=== PATIENT | male | born 1990 | race American Indian/Alaskan Native ===

== ENCOUNTER 2017-03-15 05:44 | Emergency (ER) | payer BC, OTHER ==
[2017-03-15] MEDS ORDERED: Diphtheria,Pertussis(Acell),Tetanus Vaccine 0.5 ML Syringe IM ONE (06:17)
--- NOTE | 2017-03-15 06:26 | EDM.PDOC ---
ED HPI GENERAL MEDICAL PROBLEM - General Chief Complaint: Bite:Animal, Insect Stated Complaint: DOG BITE Time Seen by Provider: 03/15/17 05:55 Source of Information: Reports: Patient - History of Present Illness INITIAL COMMENTS - FREE TEXT/NARRATIVE: History of present illness: []Patient was bitten by his own dog this morning to his right hand. He denies any other injuries he is able to move his hand and has normal sensation. He is unaware of when he had his last tetanus shot. Review of systems: As per history of present illness and below otherwise all systems reviewed and negative. Past medical history: As per history of present illness and as reviewed below otherwise noncontributory. Surgical history: As per history of present illness and as reviewed below otherwise noncontributory. Social history: No reported history of drug or alcohol abuse. Family history: As per history of present illness and as reviewed below otherwise noncontributory. Physical exam: General: Well developed, well nourished in NAD HEENT: Atraumatic, normocephalic, pupils reactive, negative for conjunctival pallor or scleral icterus, mucous membranes moist, throat clear, neck supple, nontender, trachea midline. Lungs: Clear to auscultation, breath sounds equal bilaterally, chest nontender. Heart: S1S2, regular, negative for clicks, rubs, or JVD. Abdomen: Soft, nondistended, nontender. Negative for masses or hepatosplenomegaly. Negative for costovertebral tenderness. Pelvis: Stable nontender. Genitourinary: Deferred. Rectal: Deferred. Extremities: Superficial abrasion to the right thumb at the base of the nail plate full range of motion capillary refill brisk sensation intact, negative for cords or calf pain. Neurovascular unremarkable. Neuro: Awake, alert, oriented. Cranial nerves II through XII unremarkable. Cerebellum unremarkable. Motor and sensory unremarkable throughout. Exam nonfocal. Diagnostics: []X-ray showing no fracture Therapeutics: []Tetanus was updated wound was cleaned Impression: []Dog bite right thumb Plan: []Augmentin twice a day for 7 days Motrin for pain warm soaks 3 times a day for 20 minutes follow-up with PMD or return here if symptoms worsen or change Definitive disposition and diagnosis as appropriate pending reevaluation and review of above. right thumb Pain Score (Numeric/FACES): 7 - Related Data Allergies Allergy/AdvReac Type Severity Reaction Status Date / Time seasonal allergies Allergy Sneezing Uncoded 03/15/17 06:06 Home Meds: Home Meds Amoxicillin/Potassium Clav [Augmentin 875-125 Tablet] 1 each PO BID #14 tablet 03/15/17 [Rx] LORazepam 1 mg PO ASDIRECTED 03/15/17 [History] Past Medical History HEENT History: Reports: None Cardiovascular History: Reports: None Respiratory History: Reports: None Gastrointestinal History: Reports: None Genitourinary History: Reports: None Musculoskeletal History: Reports: None Neurological History: Reports: None Psychiatric History: Reports: Anxiety, Depression Endocrine/Metabolic History: Reports: None Hematologic History: Reports: None Immunologic History: Reports: None Oncologic (Cancer) History: Reports: None Dermatologic History: Reports: None - Infectious Disease History Infectious Disease History: Reports: None - Past Surgical History Head Surgeries/Procedures: Reports: None HEENT Surgical History: Reports: Naso-Sinus Surgery Musculoskeletal Surgical History: Reports: Other (See Below) Other Musculoskeletal Surgeries/Procedures:: surgery to right finger Social & Family History - Family History Family Medical History: Noncontributory - Tobacco Use Smoking Status *Q: Never Smoker - Caffeine Use Caffeine Use: Reports: Coffee - Recreational Drug Use Recreational Drug Use: No ED ROS GENERAL - Review of Systems Review Of Systems: See Below (See history of present illness) ED EXAM, ANIMAL BITE - Physical Exam Exam: See Below (See history of present illness) Course - Vital Signs Last Recorded V/S: Last Vital Signs Temp 36.1 C 03/15/17 05:57 Pulse 64 03/15/17 05:57 Resp 16 03/15/17 05:57 BP 142/80 H 03/15/17 05:57 Pulse Ox 98 03/15/17 05:57 - Orders/Labs/Meds Orders: Active Orders 24 hr Category Date Time Status Vaccines to be Administered [RC] PER UNIT ROUTINE Care 03/15/17 06:17 Active Hand 2V Rt [CR] Stat Exams 03/15/17 06:17 Taken Meds: Medications Discontinued Medications Generic Name Dose Route Start Last Admin Trade Name Freq PRN Reason Stop Dose Admin Diphtheria/Tetanus/Acell Pertussis 0.5 ml 03/15/17 06:17 03/15/17 06:53 Adacel IM 03/15/17 06:18 0.5 ml .ONCE ONE Administration Departure - Departure Time of Disposition: 07:22 Disposition: Home, Self-Care 01 Condition: Good Clinical Impression: Dog bite of right hand Qualifiers: Encounter type: initial encounter Qualified Code(s): S61.451A - Open bite of right hand, initial encounter; W54.0XXA - Bitten by dog, initial encounter - Discharge Information Prescriptions: Amoxicillin/Potassium Clav [Augmentin 875-125 Tablet] 1 each PO BID #14 tablet Forms: ED Department Discharge Additional Instructions: The following information is given to patients seen in the emergency department who are being discharged to home. This information is to outline your options for follow-up care. We provide all patients seen in our emergency department with a follow-up referral. The need for follow-up, as well as the timing and circumstances, are variable depending upon the specifics of your emergency department visit. If you don't have a primary care physician on staff, we will provide you with a referral. We always advise you to contact your personal physician following an emergency department visit to inform them of the circumstance of the visit and for follow-up with them and/or the need for any referrals to a consulting specialist. The emergency department will also refer you to a specialist when appropriate. This referral assures that you have the opportunity for follow-up care with a specialist. All of these measure are taken in an effort to provide you with optimal care, which includes your follow-up. Under all circumstances we always encourage you to contact your private physician who remains a resource for coordinating your care. When calling for follow-up care, please make the office aware that this follow-up is from your recent emergency room visit. If for any reason you are refused follow-up, please contact the [facility] Emergency Department at and asked to speak to the emergency department charge nurse. Augmentin twice a day for 7 days Follow-up with PMD return here if symptoms worsen or change, warm soaks 3 times a day for 10 minutes next couple days. [facility] [address] [place] [id number] - My Orders Last 24 Hours: My Active Orders 03/15/17 06:17 Vaccines to be Administered [RC] PER UNIT ROUTINE Hand 2V Rt [CR] Stat - Assessment/Plan Last 24 Hours: My Active Orders 03/15/17 06:17 Vaccines to be Administered [RC] PER UNIT ROUTINE Hand 2V Rt [CR] Stat
[2017-03-15 07:38] VITALS: BP 134/78
--- NOTE | 2017-03-15 13:18 | CR ---
EXAM DATE: 03/15/17 PATIENT'S AGE: 26 Patient: THERESA LIU Facility: [place], [place] Site . Site : 1990 Study: XRay Extremity Right HAND [id number]/18/2017 7:10:35 AM Ordering Physician: Doctor Lopez Final Report: INDICATION: Dog bite to the right 1st digit. Comparison: Radiographic examination of the right hand February 19, 2012. Technique: Two-view study right hand. Findings: No evidence of fracture or dislocation involving the right 1st finger. Deformity terminal phalanx right middle finger stable in appearance. Bony protrusion along the lateral aspect distal end proximal phalanx right 4th finger ; further assessment with correlating with the clinical examination is suggested. Impression: 1. Negative radiographic examination of the right 1st finger. 2. Deformity tuft middle phalanx stable in appearance. 3. Bony protrusion lateral aspect distal end proximal phalanx right 4th finger. Dictated by Jennifer John MD @ Mar 15 2017 7:12AM (Electronic Signature) Report Signed by Proxy. RA
== END 2017-03-15 07:39 | disposition home or self-care (01) ==
LOC: MW.ED 05:44
DX: S61.051A Open bite of right thumb without damage to nail, initial encounter (principal); S60.311A Abrasion of right thumb, initial encounter; F41.9 Anxiety disorder, unspecified; F32.9 Major depressive disorder, single episode, unspecified; W54.0XXA Bitten by dog, initial encounter; Z23 Encounter for immunization
CPT/HCPCS: 73120-26-RT; 73120-RT; 90471; 90715; 99283; 99283-25

== ENCOUNTER 2017-06-07 21:59 | Emergency (ER) | payer BC, OTHER ==
[2017-06-07] MEDS ORDERED: Bacitracin Oint 1 GM U/D Packet TOP ONE (22:18)
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
[2017-06-07] MEDS ORDERED: Ibuprofen 800 MG Tab PO ONE (22:56)
[2017-06-08 00:48] VITALS: BP 140/89
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
== END 2017-06-07 23:03 | disposition home or self-care (01) ==
LOC: MW.ED 21:59
DX: S80.02XA Contusion of left knee, initial encounter (principal); S50.12XA Contusion of left forearm, initial encounter; S80.212A Abrasion, left knee, initial encounter; V03.90XA Pedestrian on foot injured in collision with car, pick-up truck or van, unspecified whether traffic or nontraffic accident, initial encounter; Y92.410 Unspecified street and highway as the place of occurrence of the external cause
CPT/HCPCS: 73562; 99284; A9270; 99282

== ENCOUNTER 2019-04-11 18:15 | Emergency (ER) | payer BC, OTHER ==
[2019-04-11 18:52] VITALS: BP 124/68
--- NOTE | 2019-04-11 18:56 | EDM.PDOC ---
ED HPI GENERAL MEDICAL PROBLEM - General Chief Complaint: Behavioral/Psych Stated Complaint: PT HAS ANXIETY Time Seen by Provider: 04/11/19 18:38 Source of Information: Reports: Patient History Limitations: Reports: No Limitations - History of Present Illness INITIAL COMMENTS - FREE TEXT/NARRATIVE: HISTORY AND PHYSICAL: History of present illness: Patient is a 28-year-old male who presents to the ED today with concern of having an anxiety attack today. Patient states he has a history of anxiety and depression in his mother about 1 month ago which has worsened his symptoms over the past month. Patient states he follows along with Dr. Bill in the clinic, and at the last visit adjusted his medications. Patient states he feels as if these medications aren't working and anxiety has been worse the past week. Patient states today he feels like his heart is racing like he can't take a big deep breath in. Patient states he does not have any rescue medication for this at home. Patient denies any homicidal or suicidal plan, intent, or actions. Patient states he has been following with counseling along with frequent visits with Dr. Bill for his symptoms. Patient denies any other symptoms or concerns at this time. Patient denies fever, chills, chest pain, or cough. Denies headache, neck stiff ness, change in vision, syncope, or near syncope. Denies nausea, vomiting, abdominal pain, diarrhea, constipation, or dysuria. Has not noted any blood in urine or stool. Patient has been eating and drinking appropriately. Review of systems: As per history of present illness and below otherwise all systems reviewed and negative. Past medical history: As per history of present illness and as reviewed below otherwise noncontributory. Surgical history: As per history of present illness and as reviewed below otherwise noncontributory. Social history: See social history for further information Family history: As per history of present illness and as reviewed below otherwise noncontributory. Physical exam: General: Patient is alert, oriented, and in no acute distress. Patient sitting comfortably on exam table but anxious appearing playing with the bottom of his shirt. HEENT: Atraumatic, normocephalic, pupils equal and reactive bilaterally, negative for conjunctival pallor or scleral icterus, mucous membranes moist, TMs normal bilaterally, throat clear, neck supple, nontender, trachea midline. No drooling or trismus noted. No meningeal signs. No hot potato voice noted. Lungs: Clear to auscultation, breath sounds equal bilaterally, chest nontender. Heart: S1S2, regular rate and rhythm without overt murmur Abdomen: Soft, nondistended, nontender. Negative for masses or hepatosplenomegaly. Negative for costovertebral tenderness. Pelvis: Stable nontender. Genitourinary: Deferred. Rectal: Deferred. Skin: Intact, warm, dry. No lesions or rashes noted. Extremities: Atraumatic, negative for cords or calf pain. Neurovascular unremarkable. Neuro: Awake, alert, oriented. Cranial nerves II through XII unremarkable. Cerebellum unremarkable. Motor and sensory unremarkable throughout. Exam nonfocal. Notes: Patient signed AMA form and left ED prior to completion of diagnostics. Diagnostics: CBC, CMP, EKG, chest x-ray, TSH Therapeutics: Ativan PO Prescription: None (Patient quickly left ED) Impression: Anxiety Medical screening exam Against Medical Advice Plan: 1. Patient left ED without discharge. Signed AMA form Definitive disposition and diagnosis as appropriate pending reevaluation and review of above. - Related Data Allergies Allergy/AdvReac Type Severity Reaction Status Date / Time seasonal allergies Allergy Sneezing Uncoded 04/11/19 18:50 Home Meds: Home Meds LORazepam 1 mg PO ASDIRECTED PRN 03/15/17 [History] Past Medical History - Past Health History Medical/Surgical History: Denies Medical/Surgical History HEENT History: Reports: None Cardiovascular History: Reports: None Respiratory History: Reports: None Gastrointestinal History: Reports: None Genitourinary History: Reports: None Musculoskeletal History: Reports: None Neurological History: Reports: None Psychiatric History: Reports: Anxiety, Depression Endocrine/Metabolic History: Reports: None Hematologic History: Reports: None Immunologic History: Reports: None Oncologic (Cancer) History: Reports: None Dermatologic History: Reports: None - Infectious Disease History Infectious Disease History: Reports: None - Past Surgical History Head Surgeries/Procedures: Reports: None HEENT Surgical History: Reports: Naso-Sinus Surgery Musculoskeletal Surgical History: Reports: Other (See Below) Other Musculoskeletal Surgeries/Procedures:: surgery to right finger Social & Family History - Family History Family Medical History: Noncontributory - Tobacco Use Smoking Status *Q: Never Smoker Second Hand Smoke Exposure: No - Caffeine Use Caffeine Use: Reports: Coffee Caffeine Use Comment: "sometimes" - Recreational Drug Use Recreational Drug Use: Yes Recreational Drug Type: Reports: Marijuana/Hashish Recreational Drug Use Frequency: Daily ED ROS GENERAL - Review of Systems Review Of Systems: ROS reveals no pertinent complaints other than HPI. ED EXAM, GENERAL - Physical Exam Exam: See Below (See dictation) Course - Vital Signs Last Recorded V/S: Last Vital Signs Temp 36.7 C 04/11/19 18:50 Pulse 101 H 04/11/19 18:50 Resp 20 04/11/19 18:50 BP 124/68 04/11/19 18:50 Pulse Ox 98 04/11/19 18:50 - Orders/Labs/Meds Orders: Active Orders 24 hr Category Date Time Status EKG Documentation Completion [RC] STAT Care 04/11/19 19:01 Active COMPREHENSIVE METABOLIC PN,CMP [CHEM] Stat Lab 04/11/19 19:11 Received TSH [CHEM] Stat Lab 04/11/19 19:11 Received Labs: Laboratory Tests 04/11/19 04/11/19 Range/Units 19:11 19:11 WBC 9.68 (4.0-11.0) K/uL RBC 5.32 (4.50-5.90) M/uL Hgb 15.9 (13.0-17.0) g/dL Hct 45.8 (38.0-50.0) % MCV 86.1 (80.0-98.0) fL MCH 29.9 (27.0-32.0) pg MCHC 34.7 (31.0-37.0) g/dL RDW Std Deviation 39.0 (28.0-62.0) fl RDW Coeff of Beinto 12 (11.0-15.0) % Plt Count 202 (150-400) K/uL MPV 11.20 (7.40-12.00) fL Neut % (Auto) 72.7 (48.0-80.0) % Lymph % (Auto) 16.8 (16.0-40.0) % [place] % (Auto) 9.0 (0.0-15.0) % Eos % (Auto) 1.4 (0.0-7.0) % Baso % (Auto) 0.1 (0.0-1.5) % Neut # (Auto) 7.0 H (1.4-5.7) K/uL Lymph # (Auto) 1.6 (0.6-2.4) K/uL [place] # (Auto) 0.9 H (0.0-0.8) K/uL Eos # (Auto) 0.1 (0.0-0.7) K/uL Baso # (Auto) 0.0 (0.0-0.1) K/uL Nucleated RBC % 0.0 /100WBC Nucleated RBCs # 0 K/uL Troponin I < 0.050 (0.000-0.056) ng/mL Meds: Medications Discontinued Medications Generic Name Dose Route Start Last Admin Trade Name Freq PRN Reason Stop Dose Admin Lorazepam 0.5 mg 04/11/19 19:03 04/11/19 19:14 Ativan PO 04/11/19 19:04 0.5 mg ONETIME ONE Administration Departure - Departure Time of Disposition: 20:34 Disposition: Against Medical Advice 07 Clinical Impression: Anxiety, Left against medical advice, Encounter for medical screening examination - Discharge Information Additional Instructions: Patient left the ED without discharge discharge instructions. - My Orders Last 24 Hours: My Active Orders 04/11/19 19:01 EKG Documentation Completion [RC] STAT 04/11/19 19:11 COMPREHENSIVE METABOLIC PN,CMP [CHEM] Stat TSH [CHEM] Stat - Assessment/Plan Last 24 Hours: My Active Orders 04/11/19 19:01 EKG Documentation Completion [RC] STAT 04/11/19 19:11 COMPREHENSIVE METABOLIC PN,CMP [CHEM] Stat TSH [CHEM] Stat
[2019-04-11] MEDS ORDERED: LORazepam 0.5 MG Tab PO ONE (19:03)
--- NOTE | 2019-04-11 19:47 | CR ---
INDICATION: anxiety TECHNIQUE: Chest 1 view. COMPARISON: None. FINDINGS: Cardiovascular and mediastinum: Heart size and vasculature are normal in caliber and appearance. Mediastinum is within normal limits. Lungs and pleural space: Lungs are clear. No sign of infiltrate or mass. No sign of pleural effusion. No pneumothorax. Bones and soft tissues: No significant findings. IMPRESSION: Unremarkable chest. Dictated by: Gordo Barton MD @ 04/11/2019 19:47:32 (Electronically Signed)
[2019-04-11 22:01] LABS: CHLORIDE,CL 104 mmol/L (98-107); SODIUM,NA 141 mmol/L (136-148)
== END 2019-04-11 20:25 | disposition left against medical advice (07) ==
LOC: MW.ED 18:15
DX: F41.9 Anxiety disorder, unspecified (principal); F32.9 Major depressive disorder, single episode, unspecified; Z79.899 Other long term (current) drug therapy
CPT/HCPCS: 36415; 71045; 80053; 84443; 84484; 85025; 93005; 99284; A9270; 99283

== ENCOUNTER 2019-04-18 01:02 | Emergency (ER) | payer BC, OTHER ==
[2019-04-18 01:16] VITALS: BP 127/80
--- NOTE | 2019-04-18 01:19 | EDM.PDOC ---
ED HPI GENERAL MEDICAL PROBLEM - General Chief Complaint: Behavioral/Psych Stated Complaint: MED. CLEARENCE Time Seen by Provider: 04/18/19 01:05 - History of Present Illness INITIAL COMMENTS - FREE TEXT/NARRATIVE: HISTORY AND PHYSICAL: History of present illness: Patient's 28-year-old white male who presents in custody of law enforcement for medical clearance and police hold / psychiatric admission. Review of systems: As per history of present illness and below otherwise all systems reviewed and negative. Past medical history: As per history of present illness and as reviewed below otherwise noncontributory. Surgical history: As per history of present illness and as reviewed below otherwise noncontributory. Social history: No reported history of drug or alcohol abuse. Family history: As per history of present illness and as reviewed below otherwise noncontributory. Physical exam: HEENT: Ecchymosis and swelling in right periorbital region, normocephalic, pupils reactive, negative for conjunctival pallor or scleral icterus, mucous membranes moist, throat clear, neck supple, nontender, trachea midline. Lungs: Clear to auscultation, breath sounds equal bilaterally, chest nontender. Heart: S1S2, regular, negative for clicks, rubs, or JVD. Abdomen: Soft, nondistended, nontender. Negative for masses or hepatosplenomegaly. Negative for costovertebral tenderness. Pelvis: Stable nontender. Genitourinary: Deferred. Rectal: Deferred. Extremities: Atraumatic, negative for cords or calf pain. Neurovascular unremarkable. Neuro: Awake, alert, oriented. Cranial nerves II through XII unremarkable. Cerebellum unremarkable. Motor and sensory unremarkable throughout. Exam nonfocal. Diagnostics: None Therapeutics: None Impression: #1 medical clearance for please hold/psychiatric admission Definitive disposition and diagnosis as appropriate pending reevaluation and review of above. - Related Data Allergies Allergy/AdvReac Type Severity Reaction Status Date / Time seasonal allergies Allergy Sneezing Uncoded 04/11/19 18:50 Home Meds: Home Meds LORazepam 1 mg PO ASDIRECTED PRN 03/15/17 [History] Venlafaxine [Effexor XR] 04/18/19 [History] Past Medical History - Past Health History Medical/Surgical History: Denies Medical/Surgical History HEENT History: Reports: None Cardiovascular History: Reports: None Respiratory History: Reports: None Gastrointestinal History: Reports: None Genitourinary History: Reports: None Musculoskeletal History: Reports: None Neurological History: Reports: None Psychiatric History: Reports: Anxiety, Depression Endocrine/Metabolic History: Reports: None Hematologic History: Reports: None Immunologic History: Reports: None Oncologic (Cancer) History: Reports: None Dermatologic History: Reports: None - Infectious Disease History Infectious Disease History: Reports: None - Past Surgical History Head Surgeries/Procedures: Reports: None HEENT Surgical History: Reports: Naso-Sinus Surgery Musculoskeletal Surgical History: Reports: Other (See Below) Other Musculoskeletal Surgeries/Procedures:: surgery to right finger Social & Family History - Family History Family Medical History: Noncontributory - Caffeine Use Caffeine Use: Reports: Coffee Caffeine Use Comment: "sometimes" ED ROS GENERAL - Review of Systems Review Of Systems: ROS reveals no pertinent complaints other than HPI. ED EXAM, GENERAL - Physical Exam Exam: See Below (See dictation) Departure - Departure Time of Disposition: 01:18 Disposition: Home, Self-Care 01 Condition: Good Clinical Impression: Depressive disorder, Medical clearance for incarceration - Discharge Information Referrals: PCP,None [Primary Care Provider] - Additional Instructions: The following information is given to patients seen in the emergency department who are being discharged to home. This information is to outline your options for follow-up care. We provide all patients seen in our emergency department with a follow-up referral. The need for follow-up, as well as the timing and circumstances, are variable depending upon the specifics of your emergency department visit. If you don't have a primary care physician on staff, we will provide you with a referral. We always advise you to contact your personal physician following an emergency department visit to inform them of the circumstance of the visit and for follow-up with them and/or the need for any referrals to a consulting specialist. The emergency department will also refer you to a specialist when appropriate. This referral assures that you have the opportunity for followup care with a specialist. All of these measure are taken in an effort to provide you with optimal care, which includes your followup. Under all circumstances we always encourage you to contact your private physician who remains a resource for coordinating your care. When calling for followup care, please make the office aware that this follow-up is from your recent emergency room visit. If for any reason you are refused follow-up, please contact the [facility] emergency department at and asked to speak to the emergency department charge nurse. []
== END 2019-04-18 01:21 ==
LOC: MW.ED 01:02
DX: F32.9 Major depressive disorder, single episode, unspecified (principal); F41.9 Anxiety disorder, unspecified; Z79.899 Other long term (current) drug therapy
CPT/HCPCS: 99282

== ENCOUNTER 2019-04-18 10:02 | Emergency (ER) | payer BC, OTHER ==
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
[2019-04-18] MEDS ORDERED: LORazepam 1 MG Tab PO ONE (10:18)
[2019-04-18] MEDS ORDERED: Venlafaxine 37.5 MG Tab PO SCH (10:30)
[2019-04-18 10:55] LABS: ACETAMINOPHEN <2.0 ug/mL
[2019-04-18 11:08] LABS: CHLORIDE,CL 105 mmol/L (98-107); SODIUM,NA 143 mmol/L (136-148)
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
[2019-04-18 11:48] VITALS: BP 127/82
== END 2019-04-18 11:48 ==
LOC: MW.ED 10:02
DX: S05.11XA Contusion of eyeball and orbital tissues, right eye, initial encounter (principal); F32.9 Major depressive disorder, single episode, unspecified; X83.8XXA Intentional self-harm by other specified means, initial encounter; F41.9 Anxiety disorder, unspecified; Z79.899 Other long term (current) drug therapy
CPT/HCPCS: 36415; 70486; 80053; 80305; 81003; 84443; 85025; 99282; 99284; A9270; G0480; 99283

== ENCOUNTER 2021-02-27 19:37 | Emergency (ER) | payer BC, OTHER ==
--- NOTE | 2021-02-27 20:03 | EDM.PDOC ---
ED HPI GENERAL MEDICAL PROBLEM - General Chief Complaint: Upper Extremity Injury/Pain Stated Complaint: FELL ON ARM Time Seen by Provider: 02/27/21 19:38 Source of Information: Reports: Patient History Limitations: Reports: No Limitations - History of Present Illness INITIAL COMMENTS - FREE TEXT/NARRATIVE: HISTORY AND PHYSICAL: History of present illness: Patient is a 30-year-old male that was skateboarding prior to arrival and fell on his right arm. He states that he feels like his arm is broken it is very painful. Patient did not take anything prior to arrival has not used ice or heat on it. Patient denies any fever, chills, headache, change in vision, syncope or near syncope. Denies any chest pain, back pain, shortness of breath or cough. Denies any abdominal pain, nausea, vomiting, diarrhea, constipation or dysuria. Has not noted any blood in urine or stool. Patient has been eating and drinking appropriately. Review of systems: As per history of present illness and below otherwise all systems reviewed and negative. Past medical history: As per history of present illness and as reviewed below otherwise noncontributory. Surgical history: As per history of present illness and as reviewed below otherwise noncontributory. Social history: See social history for further information Family history: As per history of present illness and as reviewed below otherwise noncontributory. Physical exam: General: Well developed and well nourished. Alert and orientated x 3. Nontoxic in appearance and in no acute distress. Vital signs are stable and have been reviewed by me. Nursing notes were reviewed. HEENT: Atraumatic, normocephalic, pupils equal and reactive bilaterally, negative for conjunctival pallor or scleral icterus, mucous membranes moist, TMs normal bilaterally, throat clear, neck supple, nontender, trachea midline. No drooling or trismus noted. No meningeal signs. No hot potato voice noted. Lungs: Clear to auscultation bilaterally. No wheezes, rales, or rhonchi. Chest nontender. Normal work of breathing, no accessory muscles used. Heart: S1S2, regular rate and rhythm without overt murmur, gallops, or rubs. No JVD. No peripheral edema Abdomen: Soft, nondistended, nontender. Normoactive bowel sounds. Negative for masses or costovertebral tenderness. Skin: Intact, warm, dry. No lesions or rashes noted. Hematologic: No petechiae or purpra. Mucosa appropriate color and normal nail bed color and refill. Extremities: Right wrist and forearm tenderness. Moves all other extremities per self without difficulty or deficits, negative for cords or calf pain. Neurovascular unremarkable. Neuro: Awake, alert, oriented. Cranial nerves II through XII unremarkable. Cerebellum unremarkable. Motor and sensory unremarkable throughout. Exam nonfocal. Psychiatric: Mood and affect are appropriate. Normal thought process. Answering questions appropriately. Notes: *This patient was seen and evaluated during the 2019 SARS-CoV-2 novel c oronavirus pandemic period. Community viral transmission is ongoing at time of this encounter and the emergency department is operating under pandemic response procedures. As stated above the patient is a 30-year-old male who presents to the emergency room after falling off his skateboard and landing on his right arm. I will get a right wrist x-ray. Patient declined at all for pain control. Right wrist x- ray Impression: No sign of acute injury in the right wrist. Right forearm x-ray Findings/Impression: Bones: Acute nondisplaced fracture present in the proximal shaft of the right radius. No other osseous abnormality. Joint spaces: Unremarkable. Soft tissues: Unremarkable. I have informed the patient of the proximal radial fracture and informed him of the need for a arm splint. The patient is agreeable for the arm splint and the sling, however, he still refuses any pain medication. I will have the patient follow-up with an orthopedic provider, he will phone them on Tuesday. Post splint application CMS check within normal limits. The patient was educated on how to check for adequate circulation while wearing the splint. I have talked with the patient about today's findings, in addition to providing specific details for plan of care. Reassessment at the time of disposition demonstrates that the patient is in no acute distress. The patient is stable for discharge, counseling was provided and we discussed in great detail signs and symptoms that would prompt them to return to the Emergency Department. Medication, follow up and supportive care measures were reviewed and discussed. Voices understanding and is agreeable to plan of care. Denies any further questions or concerns at this time. Diagnostics: Right wrist x-ray Therapeutics: Right sling for fracture stabilization and patient comfort to wear until follow-up with orthopedic surgeon Impression: Right proximal radial fracture Plan: 1. You were evaluated today on an emergent basis. Your lanes of right arm pain was evaluated with a wrist and forearm x-ray. Your forearm x-ray Findings/Impression: Bones: Acute nondisplaced fracture present in the proximal shaft of the right radius. No other osseous abnormality. Joint spaces: Unremarkable. Soft tissues: Unremarkable. We have splinted your right arm for stabilization of the fracture. You need to keep the splint on and sling on until you follow-up with the orthopedic surgeon. You can call the orthopedic provider on Tuesday for a follow-up appointment. You declined pain medication and can use Motrin or Tylenol as needed for pain. 2. You can alternate Tylenol and ibuprofen as needed for pain and fever management. 3. We encourage you to follow up with your primary care provider and/or recommended specialist in the next few days for re-evaluation and further care/management. 4. If your symptoms should worsen, new symptoms develop or any of the signs and symptoms we discussed should arise please return to the emergency room or call 911 (if needed). Definitive disposition and diagnosis as appropriate pending reevaluation and review of above. Right Wrist Pain Score (Numeric/FACES): 10 - Related Data Allergies Allergy/AdvReac Type Severity Reaction Status Date / Time seasonal allergies Allergy Sneezing Uncoded 04/18/19 10:17 Home Meds: Home Meds LORazepam 1 mg PO ASDIRECTED PRN 03/15/17 [History] Venlafaxine [Effexor XR] 04/18/19 [History] Past Medical History - Past Health History Medical/Surgical History: Denies Medical/Surgical History HEENT History: Reports: None Cardiovascular History: Reports: None Respiratory History: Reports: None Gastrointestinal History: Reports: None Genitourinary History: Reports: None Musculoskeletal History: Reports: None Neurological History: Reports: None Psychiatric History: Reports: Anxiety, Depression Other Psychiatric History: self harm Endocrine/Metabolic History: Reports: None Hematologic History: Reports: None Immunologic History: Reports: None Oncologic (Cancer) History: Reports: None Dermatologic History: Reports: None - Infectious Disease History Infectious Disease History: Reports: None - Past Surgical History Head Surgeries/Procedures: Reports: None HEENT Surgical History: Reports: Naso-Sinus Surgery Musculoskeletal Surgical History: Reports: Other (See Below) Other Musculoskeletal Surgeries/Procedures:: surgery to right finger Social & Family History - Family History Family Medical History: No Pertinent Family History - Tobacco Use Tobacco Use Status *Q: Never Tobacco User - Caffeine Use Caffeine Use: Reports: Coffee, Energy Drinks Caffeine Use Comment: "sometimes" - Recreational Drug Use Recreational Drug Type: Reports: Marijuana/Hashish Review of Systems - Review of Systems Review Of Systems: Comprehensive ROS is negative, except as noted in HPI. ED EXAM, GENERAL - Physical Exam Exam: See Below (See dictation) Course - Vital Signs Last Recorded V/S: Last Vital Signs Temp 97.2 F 02/27/21 19:52 Pulse 75 02/27/21 19:52 Resp 17 02/27/21 19:52 BP 118/74 02/27/21 19:52 Pulse Ox 98 02/27/21 19:52 - Orders/Labs/Meds Orders: Active Orders 24 hr Category Date Time Status Splinting [RC] ASDIRECTED Care 02/27/21 20:50 Active DME for Discharge [COMM] Stat Oth 02/27/21 20:52 Ordered Departure - Departure Time of Disposition: 21:13 Disposition: Home, Self-Care 01 Condition: Good Clinical Impression: Fracture of radius Qualifiers: Encounter type: initial encounter Radius location: proximal Fracture type: closed Fracture morphology: unspecified fracture morphology Laterality: right Qualified Code(s): S52.101A - Unspecified fracture of upper end of right radius, initial encounter for closed fracture - Discharge Information *PRESCRIPTION DRUG MONITORING PROGRAM REVIEWED*: Not Applicable *COPY OF PRESCRIPTION DRUG MONITORING REPORT IN PATIENT JENNIFER: Not Applicable Instructions: Radial Fracture, Cast or Splint Care, Adult, [id number] Referrals: Nile Bill MD [Primary Care Provider] - Forms: ED Department Discharge Additional Instructions: The following information is given to patients seen in the emergency department who are being discharged to home. This information is to outline your options for follow-up care. We provide all patients seen in our emergency department with a follow-up referral. The need for follow-up, as well as the timing and circumstances, are variable depending upon the specifics of your emergency department visit. If you don't have a primary care physician on staff, we will provide you with a referral. We always advise you to contact your personal physician following an emergency department visit to inform them of the circumstance of the visit and for follow-up with them and/or the need for any referrals to a consulting specialist. The emergency department will also refer you to a specialist when appropriate. This referral assures that you have the opportunity for follow-up care with a specialist. All of these measure are taken in an effort to provide you with optimal care, which includes your follow-up. Under all circumstances we always encourage you to contact your private physician who remains a resource for coordinating your care. When calling for follow-up care, please make the office aware that this follow-up is from your recent emergency room visit. If for any reason you are refused follow-up, please contact the [facility] Emergency Department at and asked to speak to the emergency department charge nurse. [facility] Professional Building [address] [place] [address], [address] [place] [address] [facility] [address] [place] [id number] Plan: 1. You were evaluated today on an emergent basis. Your lanes of right arm pain was evaluated with a wrist and forearm x-ray. Your forearm x-ray Findings/Impression: Bones: Acute nondisplaced fracture present in the proximal shaft of the right radius. No other osseous abnormality. Joint spaces: Unremarkable. Soft tissues: Unremarkable. We have splinted your right arm for stabilization of the fracture. You need to keep the splint on and sling on until you follow-up with the orthopedic surgeon. You can call the orthopedic provider on Tuesday for a follow-up appointment. You declined pain medication and can use Motrin or Tylenol as needed for pain. 2. You can alternate Tylenol and ibuprofen as needed for pain and fever management. 3. We encourage you to follow up with your primary care provider and/or rec ommended specialist in the next few days for re-evaluation and further care/management. 4. If your symptoms should worsen, new symptoms develop or any of the signs and symptoms we discussed should arise please return to the emergency room or call 911 (if needed). Sepsis Event Note (ED) - Evaluation Sepsis Screening Result: No Definite Risk - Focused Exam Vital Signs: Vital Signs Temp Pulse Resp BP Pulse Ox 02/27/21 19:52 97.2 F 75 17 118/74 98 - My Orders Last 24 Hours: My Active Orders 02/27/21 20:50 Splinting [RC] ASDIRECTED 02/27/21 20:52 DME for Discharge [COMM] Stat - Assessment/Plan Last 24 Hours: My Active Orders 02/27/21 20:50 Splinting [RC] ASDIRECTED 02/27/21 20:52 DME for Discharge [COMM] Stat
[2021-02-27 20:14] VITALS: BP 118/74; PULSE 75
--- NOTE | 2021-02-27 20:42 | CR ---
Indication: Injury and pain Technique: Right wrist 3 view Comparison: None Findings: Bones: Alignment is normal. No fractures or bone lesions. Joint spaces: Unremarkable. Soft tissues: Unremarkable. Impression: No sign of acute injury in the right wrist. Dictated by Dimitri Guillermo MD @ 02/27/2021 8:41:[address] Dimitri Guillermo @ Feb 27 2021 8:41PM
--- NOTE | 2021-02-27 20:44 | CR ---
Indication: Injury and pain Technique: Right forearm 2 views Comparison: None Findings/Impression: Bones: Acute nondisplaced fracture present in the proximal shaft of the right radius. No other osseous abnormality. Joint spaces: Unremarkable. Soft tissues: Unremarkable. Dictated by Dimitri Guillermo MD @ 02/27/2021 8:42:[address] Dimitri Guillermo @ Feb 27 2021 8:42PM
== END 2021-02-27 21:26 | disposition home or self-care (01) ==
LOC: MW.ED 19:37
DX: S52.181A Other fracture of upper end of right radius, initial encounter for closed fracture (principal); W18.39XA Other fall on same level, initial encounter
CPT/HCPCS: 29105; 73090-26-RT; 73090-RT; 73110-26-RT; 73110-RT; 99283; 99283-25